=== PATIENT | male | born 1975 | race Caucasian/White ===

== ENCOUNTER 2018-01-30 14:13 | Outpatient (CLI) | payer OTHER | END 2018-01-30 14:14 | LOC: LAB 14:13 | PROVIDERS: ATTEND Physician Assistant | DX: Z11.3 Encounter for screening for infections with a predominantly sexual mode of transmission (principal) | CPT/HCPCS: 36415; 86694; 86703 ==

== ENCOUNTER 2018-02-05 09:45 | Outpatient (CLI) | payer OTHER | END 2018-02-05 09:50 | LOC: LAB 09:45 | PROVIDERS: ATTEND Physician Assistant | DX: Z11.3 Encounter for screening for infections with a predominantly sexual mode of transmission (principal) | CPT/HCPCS: 87491; 87591 ==

== ENCOUNTER 2018-03-26 08:47 | Outpatient (CLI) | payer OTHER | END 2018-03-26 08:50 | LOC: LAB 08:47 | PROVIDERS: ATTEND Physician Assistant | DX: Z11.3 Encounter for screening for infections with a predominantly sexual mode of transmission (principal) | CPT/HCPCS: 86694; 86703; 86780 ==